=== PATIENT | female | born 1960 | race Hispanic/Latino ===

== ENCOUNTER 2023-05-02 13:23 | Outpatient (CLI) | payer BC | END 2023-05-02 13:24 | disposition home or self-care (01) | LOC: CSHWCC 13:23 | PROVIDERS: ATTEND Nurse Practitioner Family | DX: S81.802D Unspecified open wound, left lower leg, subsequent encounter (principal); R60.0 Localized edema | CPT/HCPCS: 97597; 97607; 99203; G0463 ==

== ENCOUNTER 2023-05-09 14:55 | Outpatient (CLI) | payer BC | END 2023-05-09 14:56 | disposition home or self-care (01) | LOC: CSHWCC 14:55 | PROVIDERS: ATTEND Nurse Practitioner Family | DX: S81.802D Unspecified open wound, left lower leg, subsequent encounter (principal); R60.0 Localized edema | CPT/HCPCS: 29581; 97607 ==

== ENCOUNTER 2023-05-16 11:19 | Outpatient (CLI) | payer BC | END 2023-05-16 11:20 | disposition home or self-care (01) | LOC: CSHWCC 11:19 | PROVIDERS: ATTEND Nurse Practitioner Family | DX: R60.1 Generalized edema (principal); S81.802D Unspecified open wound, left lower leg, subsequent encounter | CPT/HCPCS: 11042; 29581 ==

== ENCOUNTER 2023-05-23 08:54 | Outpatient (CLI) | payer BC | END 2023-05-23 08:55 | disposition home or self-care (01) | LOC: CSHWCC 08:54 | PROVIDERS: ATTEND Nurse Practitioner Family | DX: S81.802D Unspecified open wound, left lower leg, subsequent encounter (principal); R60.0 Localized edema | CPT/HCPCS: 11042; 97607 ==

== ENCOUNTER 2023-05-30 08:15 | Outpatient (CLI) | payer BC | END 2023-05-30 08:16 | disposition home or self-care (01) | LOC: CSHWCC 08:15 | PROVIDERS: ATTEND Nurse Practitioner Family | DX: S81.802D Unspecified open wound, left lower leg, subsequent encounter (principal); R60.0 Localized edema ==

== ENCOUNTER 2023-06-06 08:37 | Outpatient (CLI) | payer BC | END 2023-06-06 08:38 | disposition home or self-care (01) | LOC: CSHWCC 08:37 | PROVIDERS: ATTEND Nurse Practitioner Family | DX: S81.802D Unspecified open wound, left lower leg, subsequent encounter (principal); R60.0 Localized edema ==

== ENCOUNTER 2023-06-13 09:35 | Outpatient (CLI) | payer BC | END 2023-06-13 09:36 | disposition home or self-care (01) | LOC: CSHWCC 09:35 | PROVIDERS: ATTEND Nurse Practitioner Family | DX: R60.1 Generalized edema (principal); S81.802D Unspecified open wound, left lower leg, subsequent encounter | CPT/HCPCS: 11042; 29581 ==

== ENCOUNTER 2023-06-20 15:16 | Outpatient (CLI) | payer BC | END 2023-06-20 15:17 | disposition home or self-care (01) | LOC: CSHWCC 15:16 | PROVIDERS: ATTEND Nurse Practitioner Family | DX: S81.802D Unspecified open wound, left lower leg, subsequent encounter (principal); R60.0 Localized edema | CPT/HCPCS: 97597 ==

== ENCOUNTER 2023-07-05 11:05 | Outpatient (CLI) | payer BC | END 2023-07-05 11:06 | disposition home or self-care (01) | LOC: CSHWCC 11:05 | PROVIDERS: ATTEND Nurse Practitioner Family | DX: R60.1 Generalized edema (principal); S81.802D Unspecified open wound, left lower leg, subsequent encounter | CPT/HCPCS: 97597 ==

== ENCOUNTER 2023-08-20 14:50 | Outpatient (CLI) | payer BC | END 2023-08-20 14:51 | disposition home or self-care (01) | LOC: CSHWCC 14:50 | PROVIDERS: ATTEND Preventive Medicine Undersea and Hyperbaric Medicine | DX: R60.1 Generalized edema (principal) | CPT/HCPCS: 99213; G0463 ==